=== PATIENT | female | born 1950 | race Hispanic/Latino ===

== ENCOUNTER 2022-12-30 21:05 | Emergency (ER) | payer MEDICARE ==
[~2022-12-30] VITALS: Ht 162.6 cm; Wt 58.5 kg
[~2022-12-30 21:05] MED LIST: ACETAMINOPHEN-1 EAC3; ALENDRONATE SOD70 MG PO; ASPIR 8181 MG PO; ASPIRIN81 M1 PO; ATORVASTATIN CA10 MG PO; CALCIUM600 MG PO; CO Q-1050 MG; GAS-X80 MG PO; LISINOPRIL5 MG PO; LOTRONEX1 MG PO; MELOXICAM7.5 MG/5 M; METOPROLOL TART25 MG PO; MULTI-VITAMIN1 EACH PO; NEXIUM40 MG PO; NITROSTAT0.4 MG SL; PEPCID20 MG PO; PHENERGAN25 MG/1 ML PO; PROMETHAZINE HC25 M1 PO; TIZANIDINE HCL4 M1; VIBERZI PO; VICODIN PO; megastrol PO
[2022-12-30] MEDS ORDERED: TRAMADOL HCL 50 MG TAB PO STA (21:14)
[2022-12-30] MEDS ORDERED: TRAMADOL HCL 50 MG TAB ONE (21:21)
[2022-12-30] MEDS ORDERED: Morphine 4mg INJECTION 4 MG/ML INJ IM STA (21:52)
[2022-12-30] MEDS ORDERED: Morphine 4mg INJECTION 4 MG/ML INJ ONE (21:56)
[2022-12-30] MEDS ORDERED: ACETAMINOPHEN-1 EAC4 PO (22:12)
== END 2022-12-30 22:45 | disposition home or self-care (01) ==
LOC: FSED 21:11
DX: M54.50 Low back pain, unspecified (principal); S32.020A Wedge compression fracture of second lumbar vertebra, initial encounter for closed fracture; W18.39XA Other fall on same level, initial encounter; Y92.89 Other specified places as the place of occurrence of the external cause
CPT/HCPCS: 72100; 99283; J2270